=== PATIENT | male | born 1990 | race Caucasian/White ===

== ENCOUNTER 2017-11-05 19:30 | Emergency (ER) | payer BC ==
--- NOTE | 2017-11-05 19:42 | PDOC ---
Rapid Medical Evaluation Time Seen by Provider: 11/05/17 19:34 Medical Evaluation: Allergies Allergy/AdvReac Type Severity Reaction Status Date / Time No Known Allergies Allergy Verified 01/30/15 21:33 11/05/17 19:34 I have performed a brief-in person evaluation of this patient. The patient presents with a chief complaint of: non productive cough without fever/chills, cp, sob Pertinent physical exam findings:L/S CTAB B/P right arm sittin/108 B/P left arm sittin/92 Pt was informed his b/p IS TETERING THE HIGH SIDE X2 WEEKS AGO by his PMD I have ordered the following: - The patient will proceed to the ED for further evaluation. PMD: Dr. Raphael Vyas/Seb
[2017-11-05 19:43] VITALS: BP 161/92; PULSE 102; TEMP 98.4; BMI 40.4
--- NOTE | 2017-11-05 20:15 | PDOC ---
History of Present Illness - General Chief Complaint: Respiratory Stated Complaint: COUGHING Time Seen by Provider: 11/05/17 19:34 - History of Present Illness Initial Comments: 27-year-old male presents for evaluation of nonproductive cough 2 weeks no other associated symptoms. 11/05/17 20:11 Past History - Past Medical History Allergies/Adverse Reactions: Allergies Allergy/AdvReac Type Severity Reaction Status Date / Time No Known Allergies Allergy Verified 11/05/17 19:43 Home Medications: Ambulatory Orders Cetirizine HCl [Zyrtec -] 10 mg PO DAILY #30 tablet 11/05/17 HTN: No - Suicide/Smoking/Psychosocial Hx Smoking Status: No Smoking History: Never smoked Have you smoked in the past 12 months: No Number of Cigarettes Smoked Daily: 0 Information on smoking cessation initiated: No Hx Alcohol Use: No Drug/Substance Use Hx: No Substance Use Type: None Review of Systems - Review of Systems Comments:: GENERAL/CONSTITUTIONAL: [No fever or chills. No weakness. No weight change.] HEAD, EYES, EARS, NOSE AND THROAT: [No change in vision. No ear pain or discharge. No sore throat.] CARDIOVASCULAR: [No chest pain or shortness of breath.] RESPIRATORY: [+ cough, no wheezing, or hemoptysis.] GASTROINTESTINAL: [No nausea, vomiting, diarrhea or constipation. No rectal bleeding.] GENITOURINARY: [No dysuria, frequency, or change in urination.] MUSCULOSKELETAL: [No joint or muscle swelling or pain. No neck or back pain.] SKIN AND BREASTS: [No rash or easy bruising.] NEUROLOGIC: [No headache, vertigo, loss of consciousness, or loss of sensation.] PSYCHIATRIC: [No depression or anxiety.] ENDOCRINE: [No increased thirst. No abnormal weight change.] HEMATOLOGIC/LYMPHATIC: [No anemia, easy bleeding, or history of blood clots.] ALLERGIC/IMMUNOLOGIC: [No hives or skin allergy. No latex allergy.] 11/05/17 20:09 11/05/17 20:10 *Physical Exam - Vital Signs Last Vital Signs Temp Pulse Resp BP Pulse Ox 98.4 F 102 H 16 161/92 98 11/05/17 19:34 11/05/17 19:34 11/05/17 19:34 11/05/17 19:34 11/05/17 19:34 - Physical Exam Comments: GENERAL: [The patient is awake, alert, and fully oriented, in no acute distress. ] HEAD: [Normal with no signs of trauma.] EYES: [Pupils equal, round and reactive to light, extraocular movements intact, sclera anicteric, conjunctiva clear.] ENT: [Ears normal, nares patent, oropharynx clear without exudates. Moist mucous membranes.] NECK: [Normal range of motion, supple without lymphadenopathy, JVD, or masses.] LUNGS: [Breath sounds equal, clear to auscultation bilaterally. No wheezes, and no crackles.] HEART: [Regular rate and rhythm, normal S1 and S2 without murmur, rub or gallop. ] ABDOMEN: [Soft, nontender, normoactive bowel sounds. No guarding, no rebound. No masses.] EXTREMITIES: [Normal range of motion, no edema. No clubbing or cyanosis. No cords, erythema, or tenderness.] NEUROLOGICAL: [Cranial nerves II through XII grossly intact. Normal speech, normal gait.] PSYCH: [Normal mood, normal affect.] SKIN: [Warm, Dry, normal turgor, no rashes or lesions noted.] 11/05/17 20:11 Medical Decision Making - Medical Decision Making Advised him about his blood pressure to lose weight and maintain a low-sodium diet. I have also advised him to follow up with his primary care physician today. Although slightly elevated today his is asymptomatic 11/05/17 20:12 *DC/Admit/Observation/Transfer Diagnosis at time of Disposition: Seasonal allergic reaction - Discharge Dispostion Disposition: HOME Condition at time of disposition: Stable - Referrals Referrals: Raphael Gorman MD [Primary Care Provider] - - Patient Instructions Printed Discharge Instructions: Allergic Rhinitis Additional Instructions: Follow-up through primary care physician in one to 2 days. Return to the emergency room if your symptoms worsen or go unresolved prior to discharge. Also advised her primary care physician of your blood pressure in the emergency room Was in the 160s over 90s. As we discussed an isolated reading 1 time of high blood pressure does not qualify U for treatment this needs to be continually monitored her primary care physician return to the emergency room if she develop headache or visual changes this may be related to her blood pressure as well. - Post Discharge Activity
== END 2017-11-05 20:26 | disposition home or self-care (01) ==
LOC: JERFT 19:30
DX: J30.2 Other seasonal allergic rhinitis (principal); I10 Essential (primary) hypertension
CPT/HCPCS: 99281-25